=== PATIENT | male | born 1945 | race Two or more races ===

== ENCOUNTER 2018-03-26 20:04 | Inpatient (IN) | payer MEDICARE, OTHER ==
[~2018-03-26] VITALS: Ht 152.4 cm; Wt 68.9 kg
[2018-03-26] MEDS ORDERED: MAGNESIUM HYDROXIDE 30 ML UDC PO PRN (23:30)
[2018-03-26] MEDS ORDERED: MAG HYDROX/AL HYDROX/SIMETH 30 ML UDC PO PRN (23:30)
[2018-03-26] MEDS ORDERED: ACETAMINOPHEN 325 MG TABLET PO PRN (23:30)
[2018-03-26] MEDS ORDERED: SIMV40TA5 (23:37)
[2018-03-26] MEDS ORDERED: BENA1TAB19 (23:37)
[2018-03-26] MEDS ORDERED: ESCI10TA (23:37)
[2018-03-26] MEDS ORDERED: ASPI-1153 (23:37)
[2018-03-26] MEDS ORDERED: MEMA10TA21 (23:37)
[2018-03-26] MEDS ORDERED: AMLO5TAB2 (23:37)
--- NOTE | 2018-03-26 23:43 | NUR ---
GPS RN NOTES PLACED CALL ON EXCHANG LEFT MESSAGE WITH EXCHANGE REGRDING ABOUT MED RECON , PER TECHNOLOGY LAB TEACHER SHE WILL TEXT DR. ESTRADA NEW ADMISSION REGARDING ABOUT MED REACON ,
[2018-03-27 01:06] VITALS: BP 132/70
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
[2018-03-27] MEDS: LORAZEPAM 0.5 MG TABLET PO PRN (03:08)
[2018-03-27] MEDS ORDERED: Z GUARD REMEDY 4 OZ OINT TP PRN (03:30)
[2018-03-27 08:00] VITALS: BP 119/68
[2018-03-27] MEDS: BENAZEPRIL HCL 20 MG TABLET PO SCH (09:00)
[2018-03-27] MEDS: HYDROCHLOROTHIAZIDE 25 MG TABLET PO SCH (09:00)
[2018-03-27] MEDS: AMLODIPINE BESYLATE 5 MG TABLET PO SCH (09:00)
--- NOTE | 2018-03-27 09:00 | NUR ---
PT REFUSED AM MEDICATIONS. PT SLEEPY AND REQUESTING MORE REST.
[2018-03-27] MEDS: SIMVASTATIN 40 MG TABLET PO SCH (11:00)
[2018-03-27] MEDS: ASPIRIN EC 81 MG TABLET.DR PO SCH (11:00)
[2018-03-27] MEDS: Z GUARD REMEDY 4 OZ OINT TP SCH (11:00)
--- NOTE | 2018-03-27 11:00 | NUR ---
PT AGAIN REFUSED MEDS, PT RELUCTANT TO ENGAGE AND REQUESTING MORE SLEEP.
--- NOTE | 2018-03-27 12:30 | NUR ---
PT AWAKE AND EATING WITH TOTAL ASSISTANCE FROM STAFF. PT A&0X1. DENIES PAIN OR DISCOMFORT.
[2018-03-27 16:00] VITALS: BP 122/66
[2018-03-27 20:59] VITALS: BP 130/75
[2018-03-27] MEDS: DIVALPROEX SODIUM 250 MG TABLET.DR PO SCH (21:48)
[2018-03-27] MEDS: risperiDONE 1 MG TABLET PO SCH (22:02)
[2018-03-27] MEDS: TEMAZEPAM 7.5 MG CAPSULE PO PRN (22:08)
--- NOTE | 2018-03-27 22:08 | NUR ---
GPS-RN PATIENT C/O UNABLE TO STAY ASLEEP. VSS. ADMINISTERED RESTORIL 7.5MG PO ORDERED. WILL CONTINUE TO MONITOR.
[2018-03-28 07:33] LABS: BASOPHILS % (AUTO) 0.8 % (0.0-2.0); EOSINOPHILS % (AUTO) 3.1 % (0.0-6.0); HEMATOCRIT 44 % (39-51); HEMOGLOBIN 14.1 g/dL (13.5-17.5); LYMPHOCYTES # (AUTO) 1.6 /CMM (0.8-4.8); LYMPHOCYTES % (AUTO) 35.2 % (20.0-44.0); MEAN CORPUSCULAR HEMOGLOBIN 31 PG (26.0-33.0); MEAN CORPUSCULAR HGB CONC 33 g/dl (31.0-36.0); MEAN CORPUSCULAR VOLUME 96 fL (80-96); MONOCYTES # (AUTO) 0.6 /CMM (0.1-1.30); MONOCYTES % (AUTO) 12.6 % (2.0-12.0); NEUTROPHILS # (AUTO) 2.1 /CMM (1.8-8.9); NEUTROPHILS % (AUTO) 48.3 % (43.0-81.0); PLATELET COUNT (AUTO) 222 /CMM (150-450); RDW COEFFICIENT OF VARIATION 13.1 (11.5-15.0); RED BLOOD CELL COUNT(AUTO) 4.54 MIL/uL (4.5-6.0); WHITE BLOOD COUNT (AUTO) 4.4 K/uL (4.3-11.0)
[2018-03-28 07:48] LABS: APPEARANCE,URINE SL CLOUDY (CLEAR); BILIRUBIN,URINE NEGATIVE (NEGATIVE); BLOOD, URINE 1+ Ery/uL (NEGATIVE); COLOR,URINE YELLOW (YELLOW); KETONES,URINE NEGATIVE (NEGATIVE); LEUKOCYTE ESTERASE ,URINE NEGATIVE (NEGATIVE); NITRITE, URINE NEGATIVE (NEGATIVE); PROTEIN,URINE TRACE mg/dl (NEGATIVE); UGLUCOSE NEGATIVE (NEGATIVE); UROBILINOGEN,URINE 0.2 EU/dL (0.2)
[2018-03-28 07:48] LABS: ALBUMIN 3.8 g/dL (3.4-5.0); BILIRUBIN,TOTAL 0.3 mg/dL (0.2-1.0); CALCIUM, SERUM 8.8 mg/dL (8.5-10.1); CREATININE 1.2 mg/dL (0.6-1.3); TOTAL PROTEIN, SERUM 8.4 g/dL (6.4-8.2)
[2018-03-28 08:00] VITALS: BP 110/63
[2018-03-28 08:20] LABS: BACTERIA,URINE None seen /HPF (None Seen); MUCUS,URINE Few /LPF (None Seen); SQUAMOUS EPITHELIAL CELL,UR 0-2 /HPF (None Seen); WBC,URINE 0-2 /HPF (0-3)
[2018-03-28] MEDS: risperiDONE 1 MG TABLET PO SCH ×2 (09:00→16:33)
[2018-03-28] MEDS: DIVALPROEX SODIUM 250 MG TABLET.DR PO SCH ×2 (09:00→16:33)
[2018-03-28] MEDS: ASPIRIN EC 81 MG TABLET.DR PO SCH (09:00)
[2018-03-28] MEDS: RIVASTIGMINE TARTRATE 1.5 MG CAPSULE PO SCH ×2 (09:00→16:33)
[2018-03-28] MEDS: AMLODIPINE BESYLATE 5 MG TABLET PO SCH (09:00)
[2018-03-28] MEDS: BENAZEPRIL HCL 20 MG TABLET PO SCH (09:00)
[2018-03-28] MEDS: SIMVASTATIN 40 MG TABLET PO SCH (09:01)
[2018-03-28] MEDS: HYDROCHLOROTHIAZIDE 25 MG TABLET PO SCH (09:01)
--- NOTE | 2018-03-28 11:03 | NUR ---
MELINDA met with the pt's daughter, Kala Watson ([phone]), when she arrived at the hospital yesterday. The initial discharge plan was discussed which consisted of the pt being discharged to his daughter and that they would live in an apartment together.
--- NOTE | 2018-03-28 13:00 | NUR ---
GPS/RN PROJECT MANAGER JOVANY NOTIFIED OF URINALYSIS RESULTS AND NA OF 132, AWAITING CALL BACK. NO NEW ORDERS AT THIS TIME.
[2018-03-28] MEDS: Z GUARD REMEDY 4 OZ OINT TP SCH (13:09)
--- NOTE | 2018-03-28 15:19 | NUR ---
Initial Discharge Plan: Pt currently resides at [address] [place] [id number]; ([phone]). Per pt, he would like to return to living with his family. MELINDA will work with the pt and the MD regarding appropriate discharge planning. SW will form a safe and proper discharge.
--- NOTE | 2018-03-28 15:20 | NUR ---
MELINDA called Kala ([phone]), the pts daughter, to verify the information that was produced from the assessment and then to confirm the discharge plan.
--- NOTE | 2018-03-28 15:21 | NUR ---
Owen ([phone]), pts brother, called the SW and asked where the pt was staying. The SW put the brother on hold and went to go ask the pt if she can release that information. The pt stated that the SW can release the information and so the SW spoke to the brother and stated that the pt is at [facility].
[2018-03-28 16:00] VITALS: BP 119/58
[2018-03-28 20:20] VITALS: BP 154/88
[2018-03-28] MEDS: TEMAZEPAM 7.5 MG CAPSULE PO PRN ×2 (21:53→23:23)
--- NOTE | 2018-03-28 21:55 | NUR ---
PATIENT UNABLE TO SLEEP, CONFUSED, TEMAZEPAM 7.5 MG CAP PO GIVEN MIXED WITH APPLE SAUCE.
--- NOTE | 2018-03-28 23:24 | NUR ---
PATIENT STILL AWAKE, TEMAZEPAM 7.5 MG CAP REPEATED DOSE GIVEN
[2018-03-29 08:00] VITALS: BP 106/55
[2018-03-29] MEDS: DIVALPROEX SODIUM 250 MG TABLET.DR PO SCH ×2 (08:39→21:07)
[2018-03-29] MEDS: HYDROCHLOROTHIAZIDE 25 MG TABLET PO SCH (08:40)
[2018-03-29] MEDS: SIMVASTATIN 40 MG TABLET PO SCH (08:40)
[2018-03-29] MEDS: risperiDONE 1 MG TABLET PO SCH ×2 (08:40→21:07)
[2018-03-29] MEDS: ASPIRIN EC 81 MG TABLET.DR PO SCH (08:40)
[2018-03-29] MEDS: BENAZEPRIL HCL 20 MG TABLET PO SCH (08:40)
[2018-03-29] MEDS: AMLODIPINE BESYLATE 5 MG TABLET PO SCH (08:41)
[2018-03-29] MEDS: RIVASTIGMINE TARTRATE 1.5 MG CAPSULE PO SCH ×2 (08:41→21:07)
[2018-03-29] MEDS: Z GUARD REMEDY 4 OZ OINT TP SCH (08:45)
--- NOTE | 2018-03-29 10:19 | NUR ---
WOUND CARE CONSULT: PT PRESENTS WITH DRY ABRASIONS AND BRUISES, PRESENT ON ADMISSION. PT NOTED TO HAVE BLANCHABLE REDNESS TO SACRUM. RECOMMENDATIONS MADE FOR SKIN PROTECTION AND DISCUSSED WITH NURSING STAFF. CURRENT JACEY SCORE IS 15. PT INCONTINENT AT TIMES. WILL SEE PRN. BUTLER IN AGREEMENT WITH PLAN OF CARE. Addendum: 03/29/18 at 1020 by MARYCHUY ONEAL WNDNU Amended: Links added.
[2018-03-29 10:55] LABS: CALCIUM, SERUM 9.1 mg/dL (8.5-10.1); POTASSIUM 3.9 mmol/L (3.5-5.1)
[2018-03-29 11:39] LABS: BASOPHILS % (AUTO) 0.5 % (0.0-2.0); EOSINOPHILS % (AUTO) 0.9 % (0.0-6.0); HEMATOCRIT 44 % (39-51); HEMOGLOBIN 14.3 g/dL (13.5-17.5); LYMPHOCYTES # (AUTO) 1.2 /CMM (0.8-4.8); LYMPHOCYTES % (AUTO) 24.1 % (20.0-44.0); MEAN CORPUSCULAR HEMOGLOBIN 31 PG (26.0-33.0); MEAN CORPUSCULAR HGB CONC 33 g/dl (31.0-36.0); MEAN CORPUSCULAR VOLUME 95 fL (80-96); MONOCYTES # (AUTO) 0.4 /CMM (0.1-1.30); MONOCYTES % (AUTO) 8.3 % (2.0-12.0); NEUTROPHILS # (AUTO) 3.3 /CMM (1.8-8.9); NEUTROPHILS % (AUTO) 66.2 % (43.0-81.0); PLATELET COUNT (AUTO) 245 /CMM (150-450); RDW COEFFICIENT OF VARIATION 13.4 (11.5-15.0); RED BLOOD CELL COUNT(AUTO) 4.61 MIL/uL (4.5-6.0)
[2018-03-29 16:00] VITALS: BP 100/60
[2018-03-29 19:36] VITALS: BP 105/59
[2018-03-29] MEDS: TEMAZEPAM 7.5 MG CAPSULE PO PRN (22:08)
--- NOTE | 2018-03-30 08:00 | NUR ---
GPS RN AM NOTES PATIENT IN BED SLEEPING BUT AROUSABLE.REFUSED TO BE BOTHERED. ALERT AND ORIENTED X 1, NO ACUTE DISTRESS NOTED.BREAKFAST TRAY AT BEDSIDE. COOPERATIVE, MED COMPLIANT, CONFUSED, DISORGANIZED, DISORIENTED, FALL PRECAUTIONS IMPLEMENTED,WILL CONTINUE TO MONITOR Q 15 MIN FOR SAFETY AND BEHAVIOR.
[2018-03-30 08:39] VITALS: BP 97/55
[2018-03-30] MEDS: RIVASTIGMINE TARTRATE 1.5 MG CAPSULE PO SCH ×2 (08:58→21:29)
[2018-03-30] MEDS: SIMVASTATIN 40 MG TABLET PO SCH (08:59)
[2018-03-30] MEDS: risperiDONE 1 MG TABLET PO SCH ×2 (08:59→21:29)
[2018-03-30] MEDS: DIVALPROEX SODIUM 250 MG TABLET.DR PO SCH ×2 (08:59→21:29)
[2018-03-30] MEDS: HYDROCHLOROTHIAZIDE 25 MG TABLET PO SCH (08:59)
[2018-03-30] MEDS: ASPIRIN EC 81 MG TABLET.DR PO SCH (08:59)
[2018-03-30] MEDS: AMLODIPINE BESYLATE 5 MG TABLET PO SCH (09:00)
[2018-03-30] MEDS: BENAZEPRIL HCL 20 MG TABLET PO SCH (09:00)
[2018-03-30] MEDS: Z GUARD REMEDY 4 OZ OINT TP SCH (09:36)
--- NOTE | 2018-03-30 13:10 | NUR ---
Kala ([phone]), the pts daughter, called the SW yesterday to discuss the DPOA process.
--- NOTE | 2018-03-30 13:10 | NUR ---
Demetra ([phone]), from [facility] [employer] [facility], called the SW and inquired about the discharge plan since there was a report made for him.
--- NOTE | 2018-03-30 13:32 | NUR ---
SW called [facility] ([phone]) and made a report for the pt on the basis of the allegations that the pt's daughter, Kala ([phone]), made. The intake number is [id number].
[2018-03-30] MEDS: LORAZEPAM 0.5 MG TABLET PO PRN (15:46)
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
[2018-03-30 16:35] VITALS: BP 129/94
[2018-03-30 20:00] VITALS: BP 121/64
[2018-03-31 08:00] VITALS: BP 121/59
[2018-03-31] MEDS: HYDROCHLOROTHIAZIDE 25 MG TABLET PO SCH (08:51)
[2018-03-31] MEDS: SIMVASTATIN 40 MG TABLET PO SCH (08:51)
[2018-03-31] MEDS: DIVALPROEX SODIUM 250 MG TABLET.DR PO SCH ×2 (08:51→20:59)
[2018-03-31] MEDS: AMLODIPINE BESYLATE 5 MG TABLET PO SCH (08:52)
[2018-03-31] MEDS: BENAZEPRIL HCL 20 MG TABLET PO SCH (08:52)
[2018-03-31] MEDS: risperiDONE 1 MG TABLET PO SCH ×2 (08:52→21:00)
[2018-03-31] MEDS: ASPIRIN EC 81 MG TABLET.DR PO SCH (08:52)
[2018-03-31] MEDS: Z GUARD REMEDY 4 OZ OINT TP SCH (08:53)
[2018-03-31] MEDS: RIVASTIGMINE TARTRATE 1.5 MG CAPSULE PO SCH ×2 (08:55→21:00)
[2018-03-31 16:00] VITALS: BP 115/61
[2018-03-31] MEDS: LORAZEPAM 0.5 MG TABLET PO PRN (16:22)
[2018-03-31 20:00] VITALS: BP 129/77
[2018-03-31] MEDS: TEMAZEPAM 7.5 MG CAPSULE PO PRN (21:00)
--- NOTE | 2018-03-31 21:00 | NUR ---
Patient attempting to get up, confused, anxious, Temazepam 7.5 mg cap po given. Crushed meds with apple sauce
[2018-04-01 08:00] VITALS: BP 118/55
[2018-04-01] MEDS: risperiDONE 1 MG TABLET PO SCH ×2 (08:50→22:03)
[2018-04-01] MEDS: DIVALPROEX SODIUM 250 MG TABLET.DR PO SCH ×2 (08:50→22:03)
[2018-04-01] MEDS: RIVASTIGMINE TARTRATE 1.5 MG CAPSULE PO SCH ×2 (08:50→22:03)
[2018-04-01] MEDS: ASPIRIN EC 81 MG TABLET.DR PO SCH (08:50)
[2018-04-01] MEDS: AMLODIPINE BESYLATE 5 MG TABLET PO SCH (08:51)
[2018-04-01] MEDS: HYDROCHLOROTHIAZIDE 25 MG TABLET PO SCH (08:51)
[2018-04-01] MEDS: BENAZEPRIL HCL 20 MG TABLET PO SCH (08:51)
[2018-04-01] MEDS: Z GUARD REMEDY 4 OZ OINT TP SCH (08:52)
[2018-04-01] MEDS: SIMVASTATIN 40 MG TABLET PO SCH (09:11)
[2018-04-01 16:03] VITALS: BP 136/80
[2018-04-01 20:00] VITALS: BP 120/68
[2018-04-01] MEDS: TEMAZEPAM 7.5 MG CAPSULE PO PRN (22:03)
[2018-04-02 08:00] VITALS: BP 124/64
[2018-04-02] MEDS: HYDROCHLOROTHIAZIDE 25 MG TABLET PO SCH (08:49)
[2018-04-02] MEDS: risperiDONE 1 MG TABLET PO SCH ×2 (08:49→20:21)
[2018-04-02] MEDS: ASPIRIN EC 81 MG TABLET.DR PO SCH (08:49)
[2018-04-02] MEDS: DIVALPROEX SODIUM 250 MG TABLET.DR PO SCH ×2 (08:49→20:21)
[2018-04-02] MEDS: BENAZEPRIL HCL 20 MG TABLET PO SCH (08:50)
[2018-04-02] MEDS: AMLODIPINE BESYLATE 5 MG TABLET PO SCH (08:50)
[2018-04-02] MEDS: RIVASTIGMINE TARTRATE 1.5 MG CAPSULE PO SCH ×2 (08:51→20:21)
[2018-04-02] MEDS: Z GUARD REMEDY 4 OZ OINT TP SCH (09:00)
[2018-04-02] MEDS: SIMVASTATIN 40 MG TABLET PO SCH (11:56)
[2018-04-02 16:00] VITALS: BP 162/83
[2018-04-02 17:34] VITALS: BP 119/72
[2018-04-02 19:58] VITALS: BP 144/73
[2018-04-02] MEDS: TEMAZEPAM 7.5 MG CAPSULE PO PRN (20:22)
--- NOTE | 2018-04-02 20:23 | NUR ---
TEMAZEPAM 7.5 MG CAP 1 PO GIVEN FOR SLEEP.
[2018-04-03 08:00] VITALS: BP 131/67
[2018-04-03] MEDS: ASPIRIN EC 81 MG TABLET.DR PO SCH (08:34)
[2018-04-03] MEDS: risperiDONE 1 MG TABLET PO SCH ×2 (08:34→21:10)
[2018-04-03] MEDS: HYDROCHLOROTHIAZIDE 25 MG TABLET PO SCH (08:34)
[2018-04-03] MEDS: AMLODIPINE BESYLATE 5 MG TABLET PO SCH (08:34)
[2018-04-03] MEDS: BENAZEPRIL HCL 20 MG TABLET PO SCH (08:35)
[2018-04-03] MEDS: RIVASTIGMINE TARTRATE 1.5 MG CAPSULE PO SCH ×2 (08:35→21:10)
[2018-04-03] MEDS: DIVALPROEX SODIUM 250 MG TABLET.DR PO SCH ×2 (08:35→21:10)
[2018-04-03] MEDS: SIMVASTATIN 40 MG TABLET PO SCH (08:35)
[2018-04-03] MEDS ORDERED: Z GUARD REMEDY 2 OZ OINT TP SCH (09:30)
[2018-04-03 16:00] VITALS: BP 130/77
[2018-04-03 20:10] VITALS: BP 136/70
[2018-04-03] MEDS: TEMAZEPAM 7.5 MG CAPSULE PO PRN (22:00)
[2018-04-04 08:00] VITALS: BP 97/53
[2018-04-04] MEDS: ASPIRIN EC 81 MG TABLET.DR PO SCH (08:20)
[2018-04-04] MEDS: RIVASTIGMINE TARTRATE 1.5 MG CAPSULE PO SCH (08:20)
[2018-04-04] MEDS: HYDROCHLOROTHIAZIDE 25 MG TABLET PO SCH (08:21)
[2018-04-04] MEDS: SIMVASTATIN 40 MG TABLET PO SCH (08:23)
[2018-04-04] MEDS: DIVALPROEX SODIUM 250 MG TABLET.DR PO SCH (08:23)
[2018-04-04] MEDS: BENAZEPRIL HCL 20 MG TABLET PO SCH (08:24)
[2018-04-04] MEDS: risperiDONE 1 MG TABLET PO SCH (08:24)
[2018-04-04] MEDS: AMLODIPINE BESYLATE 5 MG TABLET PO SCH (08:25)
--- NOTE | 2018-04-04 10:26 | NUR ---
Demetra ([phone]), from [facility] [employer] [facility], called the SW and stated that someone from [facility] will be coming in to assess the pt tomorrow so the discharge has to be pushed back.
--- NOTE | 2018-04-04 10:27 | NUR ---
Valarie Ramos ([phone]), the pt's sister, called the SW and stated that she does not feel comfortable with the pt being discharged to the daughter. She insisted that the pt be transferred to a [facility] facility instead. Addendum: 04/04/18 at 1044 by RAUL LAWRENCE MELINDA also apologized to the pt's sister about putting her on hold for a length of time due to the fact that the SW had to go look through the pt's chart and then find the pt himself to receive permission to talk to his sister.
--- NOTE | 2018-04-04 10:44 | NUR ---
MELINDA faxed a referral to [facility] with attention to Maurizio to the fax number: [phone].
--- NOTE | 2018-04-04 10:45 | NUR ---
Jaja ([phone]) from [facility] stated that she would assess the pt today when she arrives to assess another patient.
--- NOTE | 2018-04-04 13:56 | NUR ---
MELINDA called Kala ([phone]), the pts daughter, and informed her that the current plan is to discharge the pt to a residential facility for continued care.
--- NOTE | 2018-04-04 14:21 | NUR ---
Kala ([phone]), the pts daughter, called the SW and agreed to the pt being discharged to a intermediate facility.
[2018-04-04 16:00] VITALS: BP 150/85
--- NOTE | 2018-04-04 16:26 | NUR ---
Discharge Note: Pt was discharged to [facility] ([facility]) located at [address] [place] [address]; [phone]). Pt was transported via [facility] (Trip #[id number]) at 6:45pm. Pts daughter, Kala ([phone]), is aware of this placement. Upon discharge the pt appeared to be in a euthymic mood upon discharge and his affect appeared to be flat. The pt denied having any suicidal or homicidal ideation as well as visual or auditory hallucinations. Pt will be under the care of his psychiatrist, Dr. Ye, located at [address] [place] [address]; ([phone]) and his battery tester and repairer, Dr. Hung, located at [address], [place] [address]; ([phone]).
--- NOTE | 2018-04-04 19:12 | NUR ---
DEPUTY DIRECTOR OF NURSING NOTE:PATIENT ALERT ,VERBALLY RESPONSIVE ,DENIES SI/HI/AVH .PATIENT SEEN BY WITH DISCHARGE ORDER ,LAURA VILLASEÑOR NOTIFIED WITH DISCHARGE ORDER ALL ORDERS CARRIED OUT ,REPORT GIVEN TO GRAY WARREN IN [facility] .ALL BELONGINGS RETURNED TO PATIENT `,VS STABLE .PATIENT DISCHARGED BY AMBULANCE.
--- NOTE | 2018-04-05 08:42 | NUR ---
Before the pt was discharged, an restaurant assistant for Demetra ([phone]) from [facility] [employer] [facility], came by and assessed the pt. She stated that the current discharge plan of having the pt go to a [facility] facility was sufficient.
--- NOTE | 2018-04-05 08:47 | NUR ---
MELINDA called Valarie Ramos ([phone]), the pt's sister, and informed her that the pt was discharged yesterday to a correction facility like she had requested.
== END 2018-04-04 19:55 | DRG 885 ==
LOC: GPS 22:48 → GPSOV2 04-04 18:36
PROVIDERS: ADMIT Psychiatry & Neurology Psychiatry; ATTEND Nurse Practitioner Acute Care
DX: F39 Unspecified mood [affective] disorder (principal); F29 Unspecified psychosis not due to a substance or known physiological condition; F03.90 Unspecified dementia, unspecified severity, without behavioral disturbance, psychotic disturbance, mood disturbance, and anxiety; I10 Essential (primary) hypertension; E78.5 Hyperlipidemia, unspecified; F32.9 Major depressive disorder, single episode, unspecified
CPT/HCPCS: 36415; 80048-TC; 80053-TC; 80061-TC; 81000-TC; 85025-TC; 87081-TC; 97112-TC; 97116-TC; 97530-TC